=== PATIENT | male | born 1955 | race Caucasian/White ===

== ENCOUNTER 2021-11-07 00:23 | Emergency (ER) | payer OTHER, BC ==
[2021-11-07] MEDS ORDERED: Ibuprofen 800 MG TAB ONE (00:46)
[2021-11-07] MEDS ORDERED: traMADol HCl 50 MG TAB ONE (00:46)
[2021-11-07] MEDS ORDERED: Ondansetron ODT 4 MG TAB ONE ×2 (01:13→01:59)
[2021-11-07] MEDS ORDERED: Ketorolac Tromethamine 30 MG/ML VIAL ONE (01:36)
[2021-11-07] MEDS ORDERED: Morphine 4 MG/ML VIAL ONE (01:59)
== END 2021-11-07 02:01 | disposition home or self-care (01) ==
LOC: BURERS 00:23
DX: S22.32XA Fracture of one rib, left side, initial encounter for closed fracture (principal); I10 Essential (primary) hypertension; F17.210 Nicotine dependence, cigarettes, uncomplicated; W01.0XXA Fall on same level from slipping, tripping and stumbling without subsequent striking against object, initial encounter; Y93.01 Activity, walking, marching and hiking; Z79.899 Other long term (current) drug therapy
CPT/HCPCS: 71046; 71250; 96372; J1885; J2270; Q0162

== ENCOUNTER 2021-11-08 11:12 | Emergency (ER) | payer BC ==
[2021-11-08] MEDS ORDERED: Famotidine In NaCl 20 mg/50 ml Premix Bag ONE (11:28)
[2021-11-08] MEDS ORDERED: Ondansetron PF 4 MG/2 ML Vial ONE (11:28)
[2021-11-08] MEDS ORDERED: Glycopyrrolate 0.4 MG/ 2 ML VIAL ONE (11:29)
[2021-11-08] MEDS ORDERED: Morphine 4 MG/ML VIAL ONE (11:41)
[2021-11-08 11:51] LABS: #Basophils 0.1 thou/uL (0.0-0.2); #Lymphocytes 0.6 thou/uL (1.20-3.40); #Monocytes 0.3 thou/uL (0.11-0.59); #Neutrophils 7.4 thou/uL (1.40-6.50); %Basophils 0.7 % (0.0-1.0); %Eosinophils 0.5 % (0.0-10.0); %Monocytes 4.1 % (0.0-10.0); %Neutrophils 87.7 % (42.0-75.0); Hemoglobin 13.8 g/dL (14.0-18.0); Mean Corpuscular HGB CONC 35.2 g/dL (32.0-36.0); Mean Corpuscular Hemoglobin 31.3 pg (27.0-31.0); Mean Corpuscular Volume 88.8 fL (78.0-98.0); Mean Platelet Volume 6.7 fL (7.4-10.4); Platelet Count 234 thou/uL (130-400); RBC Distribution Width 11.3 % (11.5-14.5); Red Blood Cell (RBC) Count 4.41 mill/uL (4.70-6.10); White Blood Cell (WBC) Count 8.5 thou/uL (4.8-10.8)
[2021-11-08] MEDS ORDERED: Thiamine HCl 200 MG/2 ML VIAL ONE (11:58)
[2021-11-08 12:02] LABS: ALT (SGPT) 32 U/L (8-55); AST (SGOT) 35 U/L (5-34); Albumin 4.6 g/dL (3.4-4.8); Alkaline Phosphatase 55 U/L (40-110); Anion Gap 15 mmol/L (10-20); BUN (Urea Nitrogen) 10 mg/dL (8.4-25.7); Bilirubin, Total 1.2 mg/dL (0.2-1.2); Calc. Creatinine Clearance 0 mL/min (70-130); Calcium 9.7 mg/dL (7.8-10.44); Carbon Dioxide 25 mmol/L (23-31); Chloride 89 mmol/L (98-107); Globulin 3.3 g/dL (2.4-3.5); Glucose 120 mg/dL (80-115); Lipase 20 U/L (8-78); Potassium 4.5 mmol/L (3.5-5.1); Protein, Total 7.9 g/dL (5.8-8.1); Sodium 124 mmol/L (136-145)
[2021-11-08] MEDS ORDERED: Ketorolac Tromethamine 30 MG/ML VIAL ONE (13:32)
== END 2021-11-08 13:38 | disposition home or self-care (01) ==
LOC: BURERS 11:12
DX: S22.42XA Multiple fractures of ribs, left side, initial encounter for closed fracture (principal); E87.1 Hypo-osmolality and hyponatremia; R11.2 Nausea with vomiting, unspecified; I10 Essential (primary) hypertension; K21.9 Gastro-esophageal reflux disease without esophagitis; F17.210 Nicotine dependence, cigarettes, uncomplicated; W19.XXXA Unspecified fall, initial encounter; Z79.899 Other long term (current) drug therapy
CPT/HCPCS: 70450; 71045; 80053; 83690; 84484; 85025; 93005; 96365; 96368; 96375; J1885; J2270; J2405; J3411

== ENCOUNTER 2023-12-16 17:13 | Emergency (ER) | payer MEDICARE, OTHER ==
[2023-12-16] MEDS ORDERED: Lidocaine 1% PF 5 ML VIAL ONE (17:22)
[2023-12-16] MEDS ORDERED: Boostrix 0.5 ML (Tdap) VIAL (>/=7 yrs of age) ONE (18:08)
[2023-12-16] MEDS ORDERED: Cephalexin 250 MG CAP ONE (18:11)
== END 2023-12-16 18:22 | disposition home or self-care (01) ==
LOC: BURERS 17:13
DX: S62.631A Displaced fracture of distal phalanx of left index finger, initial encounter for closed fracture (principal); S61.211A Laceration without foreign body of left index finger without damage to nail, initial encounter; I10 Essential (primary) hypertension; F17.210 Nicotine dependence, cigarettes, uncomplicated; Z23 Encounter for immunization; X58.XXXA Exposure to other specified factors, initial encounter; Y99.0 Civilian activity done for income or pay
CPT/HCPCS: 12002; 90471; 90715

== ENCOUNTER 2024-09-05 13:00 | Emergency (ER) | payer BC, MEDICARE ==
[~2024-09-05 13:00] MED LIST: Acetaminophen 500 MG TAB ONE; Lidocaine 1% PF 5 ML VIAL ONE; Penicillin V Potassium 250 MG TAB ONE
== END 2024-09-05 23:15 | disposition home or self-care (01) ==
LOC: BURERS 22:19
DX: K04.7 Periapical abscess without sinus (principal); I10 Essential (primary) hypertension; F17.210 Nicotine dependence, cigarettes, uncomplicated
CPT/HCPCS: 96372

== ENCOUNTER 2025-03-30 09:52 | Emergency (ER) | payer BC, MEDICARE ==
[2025-03-30] MEDS ORDERED: Fluorescein Opthalmic Strip ONE (10:09)
[2025-03-30] MEDS ORDERED: Tetracaine 0.5% PF 4 ML BOT ONE (10:09)
== END 2025-03-30 10:33 ==
LOC: BURERS 09:52
DX: H10.11 Acute atopic conjunctivitis, right eye (principal); I10 Essential (primary) hypertension; Z87.891 Personal history of nicotine dependence
CPT/HCPCS: 99283